=== PATIENT | male | born 1965 | race Caucasian/White ===

== ENCOUNTER 2020-02-04 05:31 | Day surgery (SDC) | payer OTHER ==
[~2020-02-04 05:31] MED LIST: AMLODIPINE-OLM1 EACH PO
[2020-02-04] MEDS ORDERED: COLACE100 MG PO (09:51)
[2020-02-04] MEDS ORDERED: PERCOCET 5-3251 EACH PO (09:51)
== END 2020-02-04 17:26 | disposition home or self-care (01) ==
LOC: CIR.AMB 05:31 → AMB-ENDOS 10:30 → CIR.AMB 17:26
PROVIDERS: ATTEND Surgery
DX: K64.8 Other hemorrhoids (principal); Z20.828 Contact with and (suspected) exposure to other viral communicable diseases